=== PATIENT | female | born 1970 | race African-American/Black ===

== ENCOUNTER 2023-05-14 20:34 | Emergency (ER) | payer OTHER ==
[~2023-05-14] VITALS: Ht 170.2 cm; Wt 86.2 kg
[2023-05-14] MEDS ORDERED: CHILDREN'S ASPI81 MG (21:16)
[2023-05-14] MEDS ORDERED: LISINOPRIL10 MG PO (21:16)
[2023-05-14] MEDS ORDERED: SIMVASTATIN20 MG (21:17)
[2023-05-14] MEDS ORDERED: LEVOTHYROXINE50 MC1 (21:17)
[2023-05-15] MEDS ORDERED: ORPHENADRINE CITRATE 30 MG/ML AMPUL IM ONE (00:15)
[2023-05-15] MEDS ORDERED: KETOROLAC TROMETHAMINE 60 MG VIAL IM ONE (00:15)
== END 2023-05-15 01:37 | disposition home or self-care (01) ==
LOC: ER 20:34
DX: M62.830 Muscle spasm of back (principal)